=== PATIENT | male | born 1945 | race Caucasian/White ===

== ENCOUNTER 2018-09-21 02:47 | Emergency (ER) | payer BC ==
--- NOTE | 2018-09-21 06:19 | PDOC ---
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 States that this numbness/ tingling has been traveling up and down his arm on a daily basis. The patients at bedside notes the patient first began to complain of right arm pain and numbness after playing outside with his dog earlier in the week. He denies [place] pain, SOB, cough, fevers, chills, headache, syncope, lightheadedness, nausea, or vomiting. Of note , his lithium level was slightly high a week ago and his dose was reduced slightly. Review of Systems - Review of Systems Constitutional: No: Chills, Diaphoresis, Fever HEENTM: No: Blurred Vision, Tearing Respiratory: No: Cough, Orthopnea, Shortness of Breath Cardiac (ROS): No: Chest Pain, Edema, Irregular Heart Rate ABD/GI: No: Diarrhea, Nausea, Vomiting : No: Burning, Dysuria, Discharge Musculoskeletal: No: Back Pain, Gout, Joint Pain, Muscle Weakness Integumentary: No: Bruising, Change in Color, Erythema, Flushing Neurological: Yes: Numbness, Paresthesia, Tingling. No: Headache, Tremors, Weakness Psychiatric: Yes: Other (Bipolar Disorder) Endocrine: No: Flushing, Increased Hunger, Increased Urine Hematologic/Lymphatic: No: Anemia, Blood Clots *Physical Exam - Physical Exam General Appearance: Yes: Nourished, Appropriately Dressed. No: Apparent Distress HEENT: positive: EOMI, OLGA LIDIA, Normal ENT Inspection, Normal Voice Neck: positive: Trachea midline, Normal Thyroid, Supple. negative: Tender, Rigid Respiratory/Chest: positive: Lungs Clear, Normal Breath Sounds. negative: Chest Tender, Respiratory Distress, Accessory Muscle Use Cardiovascular: positive: Regular Rhythm, Regular Rate Gastrointestinal/Abdominal: positive: Normal Bowel Sounds, Flat, Soft. negative : Tender Lymphatic: negative: Adenopathy, Tenderness Musculoskeletal: positive: Normal Inspection. negative: Decreased Range of Motion Extremity: positive: Normal Capillary Refill, Normal Inspection, Normal Range of Motion Integumentary: positive: Normal Color, Dry, Warm Neurologic: positive: Fully Oriented, Alert, Normal Mood/Affect, Normal Response , Motor Strength 08/28 ED Treatment Course - LABORATORY CBC & Chemistry Diagram: 09/21/18 04:44 09/21/18 04:44 Medical Decision Making - Medical Decision Making 72 year old male with PMH of BPD presenting with left arm tingling for the past week. Very unlikely to be ACS or dissection given length of time and stable vitals. CXR, EKG, and labs including troponin all WNL. No concern for ACS in this clinical setting. More likely [facility] pathology vs. psychosomatic disorder. Will DC with follow up instructions and return precautions. *DC/Admit/Observation/Transfer Diagnosis at time of Disposition: Arm paresthesia, right - Discharge Dispostion Disposition: HOME - Referrals Referrals: Yang iKrby MD [Primary Care Provider] - - Patient Instructions Printed Discharge Instructions: DI for Arm Pain - Post Discharge Activity
[2018-09-21 06:35] LABS: HEMATOCRIT 37.3 % (35.4-49); MCH 30.2 pg (25.7-33.7); MCHC 32.2 g/dl (32.0-35.9); MEAN CELL VOLUME 93.7 fl (80-96); MEAN PLT VOLUME 7.5 fl (7.5-11.1); PLATELET COUNT 237 K/MM3 (134-434); RBC 3.98 M/mm3 (4.00-5.60); RDW 15.5 % (11.9-15.9); WHITE BLOOD COUNT 9.6 K/mm3 (4.0-10.0)
[2018-09-21 07:27] LABS: BLOOD UREA NITROGEN 24 mg/dL (7-18); GLUCOSE,RANDOM 96 mg/dL (74-106)
[2018-09-21 07:28] LABS: ALBUMIN 3.5 g/dl (3.4-5.0); ANION GAP 6 MMOL/L (8-16); CALCIUM 8.9 mg/dL (8.5-10.1); CHLORIDE 112 mmol/L (98-107); CO2 22 mmol/L (21-32); CREATININE 1.5 mg/dL (0.55-1.3); POTASSIUM 5.3 mmol/L (3.5-5.1); SODIUM 140 mmol/L (136-145); TOT PROT 6.5 g/dl (6.4-8.2)
[2018-09-21 07:29] LABS: ALK PHOS 177 U/L (45-117); BILIRUBIN,TOTAL 0.2 mg/dL (0.2-1); SGOT/AST 18 U/L (15-37); SGPT/ALT 19 U/L (13-61)
--- NOTE | 2018-09-21 17:17 | EKG ---
Test Reason : Blood Pressure : / mmHG Vent. Rate : 065 BPM Atrial Rate : 065 BPM P-R Int : 220 ms QRS Dur : 096 ms QT Int : 432 ms P-R-T Axes : -13 -24 055 degrees QTc Int : 449 ms Atrial-paced rhythm with prolonged AV conduction INCOMPLETE RIGHT BUNDLE BRANCH BLOCK ABNORMAL ECG Confirmed by CHAPIN DUNCAN MD ([id number]) on 09/21/2018 5:17:41 PM Referred By: Confirmed By:CHAPIN DUNCAN MD
--- NOTE | 2018-09-21 20:00 | PDOC ---
Documentation entered by Nevin Cortes SCRIBE, acting as scribe for Viviana Manley DO. Viviana Manley DO: This documentation has been prepared by the Sebastian barnes Sammi, SCRIBE, under my direction and personally reviewed by me in its entirety. I confirm that the documentation accurately reflects all work, treatment, procedures, and medical decision making performed by me. Attending Attestation - HPI HPI: 09/21/18 06:19 The patient is a 72 year old male, with a significant PMH of HTN, pacemaker for bradycardia (3 years ago), IDDM, gout, bipolar disorder, IBS, who presents to the emergency department for evaluation of 1 week of worsening pain and numbness /tingling down the right upper extremity. He notes soreness to the right shoulder. The patients at bedside notes the patient first began to complain of right arm pain and numbness after playing outside with his dog. The patient denies chest pain, shortness of breath, headache and dizziness. Denies fever, chills, vomit, diarrhea and constipation. Denies dysuria, frequency, urgency and hematuria. - Physicial Exam PE: 09/21/18 06:19 Agree with resident's exam. - Medical Decision Making 09/21/18 06:18 Pt now feeling much better and requesting d/c home labs unremarkable chest xray shows pacemaker consistent with hx and cardiomegaly with no acute infiltrates pt a/o, ambulatory and joking with staff at nursing stations prior to d/c
== END 2018-09-22 19:52 | disposition home or self-care (01) ==
LOC: JER 02:47
DX: M79.601 Pain in right arm (principal); I10 Essential (primary) hypertension; E11.9 Type 2 diabetes mellitus without complications; Z79.4 Long term (current) use of insulin; Z87.19 Personal history of other diseases of the digestive system; Z86.79 Personal history of other diseases of the circulatory system; Z95.0 Presence of cardiac pacemaker
CPT/HCPCS: 36415; 71045-TC-FY; 80053; 80156; 80178; 82550; 84484; 85027; 93005; 93010; 99283-25